=== PATIENT | female | born 1970 | race Caucasian/White ===

== ENCOUNTER 2021-12-02 12:41 | Emergency (ER) | payer OTHER ==
[~2021-12-02] VITALS: Ht 157.5 cm; Wt 63.5 kg
[~2021-12-02 12:41] MED LIST: DEXLANSOPRAZOLE
[2021-12-02 12:51] VITALS: BP 116/78
--- NOTE | 2021-12-02 13:00 | NUR ---
50 Y/O FEMALE BIB SELF WITH C/O LEFT LEG PAINFUL WOUND X6 DAYS. PT WAS HIKING APPROX. 1 WK AGO WHEN SHE BUMPED HER LEG ON A "TREE BRANCH". PT CONCERNED WOUND MAY BE INFECTED. SHE HAS HAD PAIN RATED 7/10 WITH REDNESS AROUND THE WOUND AREA. PT HAS BEEN TREATING THE WOUND AT HOME WITH TRIPLE ANTIBIOTIC DAILY. PT DENIES FEVER, CHILLS, DRAINAGE, SOB AND CHEST PAIN. PMH:DENIES NKDA
[2021-12-02] MEDS ORDERED: CEPH-588 PO (14:05)
[2021-12-02] MEDS ORDERED: BACTO TP (14:05)
[2021-12-02] MEDS ORDERED: NAPR-54 PO (14:05)
--- NOTE | 2021-12-02 14:10 | NUR ---
Patient discharged with v/s stable. Written and verbal after care instructions ABOUT CELLULITIS AND WOUND INFECTION given and explained. Patient alert, oriented and verbalized understanding of instructions. Ambulatory with steady gait. All questions addressed prior to discharge. ID band removed. Patient advised to follow up with PMD. Rx of BACTROBAN 2% OINT, KEFLEX, AND NAPROXEN given. Patient educated on indication of medication including possible reaction and side effects. Opportunity to ask questions provided and answered. PT D/C BY LUCINDA COELHO
== END 2021-12-02 14:10 | disposition home or self-care (01) ==
LOC: MED 12:41
DX: S80.12XA Contusion of left lower leg, initial encounter (principal); L08.9 Local infection of the skin and subcutaneous tissue, unspecified; Z79.899 Other long term (current) drug therapy; Z91.018 Allergy to other foods; W22.09XA Striking against other stationary object, initial encounter; Y93.01 Activity, walking, marching and hiking; Y92.89 Other specified places as the place of occurrence of the external cause; Y99.8 Other external cause status
CPT/HCPCS: 73590; 99283; Q0092